=== PATIENT | female | born 1995 | race African-American/Black ===

== ENCOUNTER 2020-05-08 02:00 | Emergency (ER) | payer OTHER ==
[2020-05-08 02:13] VITALS: TEMP 97.8
[2020-05-08 03:02] VITALS: BP 98/48; PULSE 75; RESP 14
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
--- NOTE | 2020-05-08 03:13 | XR ---
EXAMINATION TYPE: XR hand complete LT DATE OF EXAM: 05/08/2020 COMPARISON: None HISTORY: Pain and swelling TECHNIQUE: 3 views FINDINGS: Metacarpals appear intact. I see no fracture nor dislocation. Joint spaces appear normal. T here are no erosions. IMPRESSION: Normal left hand exam.
== END 2020-05-08 04:03 | disposition home or self-care (01) ==
LOC: EC 02:00
DX: F10.129 Alcohol abuse with intoxication, unspecified (principal); S60.812A Abrasion of left wrist, initial encounter
CPT/HCPCS: 99284